=== PATIENT | male | born 1975 | race African-American/Black ===

== ENCOUNTER 2016-12-12 09:38 | Inpatient (IN) | payer OTHER ==
[2016-12-12 10:05] VITALS: BMI 21.5
--- NOTE | 2016-12-12 12:11 | HP ---
CIWA Score - CIWA Score Nausea/Vomitin-No Nausea/No Vomiting Muscle Tremors: 4-Moderate,w/Arms Extend Anxiety: 3 Agitation: 4-Moderately Restless Paroxysmal Sweats: 3 Orientation: 0-Oriented Tacttile Disturbances: 0-None Auditory Disturbances: 0-None Visual Disturbances: 0-None Headache: 0-None Present CIWA-Ar Total Score: 14 Admission ROS BHS - HPI Chief Complaint: I am here for detox. Allergies/Adverse Reactions: Allergies Allergy/AdvReac Type Severity Reaction Status Date / Time No Known Allergies Allergy Verified 12/12/16 11:08 History of Present Illness: pt is a 41yr old male with a history of alcohol dependence seeking detox for treatment. Exam Limitations: No Limitations - Ebola screening Have you traveled outside of the country in the last 21 days: No Have you had contact with anyone from an Ebola affected area: No Have you been sick,other than usual withdrawal symptoms: No Do you have a fever: No - Review of Systems Constitutional: Chills, Diaphoresis, Loss of Appetite, Night Sweats, Changes in sleep EENT: reports: No Symptoms Reported Respiratory: reports: Cough Cardiac: reports: No Symptoms Reported GI: reports: Poor Appetite, Poor Fluid Intake : reports: No Symptoms Reported Musculoskeletal: reports: No Symptoms Reported Integumentary: reports: Flushing, Sweating Neuro: reports: Tingling, Tremors Endocrine: reports: Excessive Sweating, Flushing, Intolerance to Cold, Intolerance to Heat Hematology: reports: No Symptoms Reported Psychiatric: reports: No Sypmtoms Reported, Judgement Intact, Mood/Affect Appropiate, Orientated x3, Agitated, Anxious Other Systems: Reviewed and Negative Patient History - Patient Medical History Hx Anemia: No Hx Asthma: No Hx Chronic Obstructive Pulmonary Disease (COPD): No Hx Cancer: No Hx Cardiac Disorders: No Hx Congestive Heart Failure: No Hx Hypertension: No Hx Hypercholesterolemia: No Hx Pacemaker: No HX Cerebrovascular Accident: No Hx Seizures: No Hx Dementia: No Hx Diabetes: No Hx Gastrointestinal Disorders: No Hx Liver Disease: No Hx Genitourinary Disorders: No Hx Sexually Transmitted Disorders: No Hx Renal Disease (ESRD): No Hx Thyroid Disease: No Hx Human Immunodeficiency Virus (HIV): No (negative) Hx Hepatitis C: No (negative) Hx Depression: Yes Hx Suicide Attempt: No Hx Bipolar Disorder: No Hx Schizophrenia: No - Patient Surgical History Past Surgical History: No - PPD History Previous Implant?: Yes Documented Results: Negative w/o proof PPD to be Administered?: Yes - Reproductive History Patient is a Female of Child Bearing Age (11 -55 yrs old): No - Smoking Cessation Smoking history: Current every day smoker Have you smoked in the past 12 months: Yes Aproximately how many cigarettes per day: 7 Hx Chewing Tobacco Use: No Initiated information on smoking cessation: Yes 'Breaking Loose' booklet given: 12/12/16 - Substance & Tx. History Hx Alcohol Use: Yes Hx Substance Use: No Substance Use Type: Alcohol Hx Substance Use Treatment: No - Substances Abused Alcohol Route: Oral Frequency: Daily Amount used: 2-3 40 oz malt liquor Age of first use: 35 Date of Last Use: 12/10/16 Family Disease History - Family Disease History Family Disease History: Diabetes: Mother (), CA: Mother Admission Physical Exam BHS - Vital Signs Vital Signs: Vital Signs - 24 hr 12/12/16 10:01 Temperature 96.8 F L Pulse Rate 60 Respiratory 18 Rate Blood Pressure 127/80 - Physical General Appearance: Yes: Appropriately Dressed, Thin, Irritable, Sweating, Anxious HEENTM: Yes: Hearing grossly Normal, Normal Voice, Nasal Congestion Respiratory: Yes: Lungs Clear, Normal Breath Sounds, No Respiratory Distress Neck: Yes: No masses,lesions,Nodules Breast: Yes: Within Normal Limits Cardiology: Yes: Regular Rhythm, Regular Rate, S1, S2 Abdominal: Yes: Normal Bowel Sounds, Non Tender, Soft Genitourinary: Yes: Within Normal Limits Back: Yes: Normal Inspection Musculoskeletal: Yes: full range of Motion, Muscle Pain (knee pain) Extremities: Yes: Normal Capillary Refill, Normal Inspection, Tremors Neurological: Yes: Fully Oriented, Alert, Normal Response Integumentary: Yes: Normal Color Lymphatic: Yes: Within Normal Limits - Diagnostic (1) Alcohol dependence with uncomplicated withdrawal Current Visit: Yes Status: Chronic (2) Cocaine dependence Current Visit: Yes Status: Chronic Qualifiers: Substance use status: uncomplicated Qualified Code(s): F14.20 - Cocaine dependence, uncomplicated; F14.20 - Cocaine dependence, uncomplicated; F14.20 - Cocaine dependence, uncomplicated (3) Chronic knee pain Current Visit: Yes Status: Chronic Qualifiers: Laterality: right Qualified Code(s): M25.561 - Pain in right knee; M25.561 - Pain in right knee; G89.29 - Other chronic pain; G89.29 - Other chronic pain Cleared for Admission BHS - Detox or Rehab [facility] Level of Care: Medically Managed Detox Regimen/Protocol: Librium [facility] Breath Alcohol Content Breath Alcohol Content: 0 Urine Drug Screen - Results Drug Screen Negative: Yes
[2016-12-12] MEDS ORDERED: MAGNESIUM CITRATE 300 ML BOTTLE PO PRN (12:12)
[2016-12-12] MEDS ORDERED: ACETAMINOPHEN 325 MG TABLET (FP) PO PRN (12:12)
[2016-12-12] MEDS ORDERED: MENTHOL/PHENOL 1 EACH UD MM PRN (12:12)
[2016-12-12] MEDS ORDERED: IBUPROFEN 400 MG TABLET (FP) PO PRN (12:12)
[2016-12-12] MEDS ORDERED: MAG HYDROX/AL HYDROX/SIMETH 30 ML UNIT-DOSE CUP PO PRN (12:12)
[2016-12-12] MEDS ORDERED: NICOTINE POLACRILEX 2 MG GUM BUC PRN (12:12)
[2016-12-12] MEDS ORDERED: LOPERAMIDE HCL 2 MG CAPSULE PO PRN (12:12)
[2016-12-12] MEDS ORDERED: chlordiazePOXIDE HCL 25 MG CAPSULE PO PRN (12:12)
[2016-12-12] MEDS ORDERED: guaiFENesin/D-METHORPHAN HB 10 ML UNIT-DOSE CUPS PO PRN (12:12)
[2016-12-12] MEDS ORDERED: MAGNESIUM HYDROX 2400MG/30ML ORAL SUSPENSION 30 ML CUP PO PRN (12:12)
[2016-12-12] MEDS ORDERED: P-EPHED 60MG/TRIPROLIDI 2.5MG TABLET PO PRN (12:12)
[2016-12-12] MEDS ORDERED: chlordiazePOXIDE HCL 25 MG CAPSULE PO ONE (12:29)
--- NOTE | 2016-12-12 16:09 | CONSULT ---
[facility] Psychiatric Consult - Data Date of interview: 12/12/16 Admission source: [facility] Identifying data: First admission to [facility] for this 41 y/o AA male seeking detox treatment for alcohol and marihuana dependence.Patient is single,father of one,domiciled,unemployed and deprived of financial assistance. Substance Abuse History: Confirmed by patient. Smoking Cessation. Smoking history: Current every day smoker. Have you smoked in the past 12 months: Yes. Aproximately how many cigarettes per day: 7. Hx Chewing Tobacco Use: No. Initiated information on smoking cessation: Yes. 'Breaking Loose' booklet given : 12/12/16. - Substance & Tx. History. Hx Alcohol Use: Yes. Hx Substance Use : No. Substance Use Type: Alcohol. Hx Substance Use Treatment: No. - Substances Abused. Alcohol. Route: Oral. Frequency: Daily. Amount used: 2 -3 40 oz malt liquor. Age of first use: 35. Date of Last Use: 12/10/16 Medical History: Patient endorses good general health. Psychiatric History: Patient denies. Physical/Sexual Abuse/Trauma History: Patient denies. Additional Comment: Drug Screen is negative. Mental Status Exam - Mental Status Exam Alert and Oriented to: Time, Place, Person Cognitive Function: Good Patient Appearance: Well Groomed Mood: Hopeful, Euthymic Affect: Appropriate, Normal Range Patient Behavior: Appropriate, Cooperative Speech Pattern: Clear Voice Loudness: Normal Thought Process: Intact, Goal Oriented Thought Disorder: Not Present Hallucinations: Denies Suicidal Ideation: Denies Homicidal Ideation: Denies Insight/Judgement: Poor Sleep: Well Appetite: Good Muscle strength/Tone: Normal Gait/Station: Normal Psychiatric Findings - Problem List ([place] 1, 2,3) (1) Alcohol dependence with uncomplicated withdrawal Current Visit: Yes Status: Acute (2) Cocaine dependence Current Visit: Yes Status: Acute Qualifiers: Substance use status: uncomplicated Qualified Code(s): F14.20 - Cocaine dependence, uncomplicated; F14.20 - Cocaine dependence, uncomplicated; F14.20 - Cocaine dependence, uncomplicated (3) Nicotine dependence Current Visit: Yes Status: Acute (4) Chronic knee pain Current Visit: Yes Status: Chronic Qualifiers: Laterality: right Qualified Code(s): M25.561 - Pain in right knee; M25.561 - Pain in right knee; G89.29 - Other chronic pain; G89.29 - Other chronic pain - Initial Treatment Plan Initial Treatment Plan: Psychoeducation.Detoxification.Observation.
[2016-12-12 16:46] LABS: URINE APPEARANCE CLEAR; URINE BILIRUBIN NEGATIVE (NEGATIVE); URINE BLOOD NEGATIVE (NEGATIVE); URINE COLOR LTYELLOW; URINE GLUCOSE (UA) NEGATIVE (NEGATIVE); URINE KETONE TRACE (NEGATIVE); URINE NITRITE NEGATIVE (NEGATIVE); URINE PROTEIN NEGATIVE (NEGATIVE); URINE UROBILINOGEN NEGATIVE mg/dL (0.2-1.0)
[2016-12-12] MEDS: chlordiazePOXIDE HCL 25 MG CAPSULE PO SCH ×2 (17:49→22:26)
[2016-12-12 18:25] LABS: URINE LEUK ESTERASE Negative (NEGATIVE)
[2016-12-12] MEDS: diphenhydrAMINE HCL 50 MG CAPSULE PO PRN (22:26)
[2016-12-12] MEDS: THIAMINE HCL 100 MG TABLET (FP) PO SCH (22:26)
[2016-12-13] MEDS: chlordiazePOXIDE HCL 25 MG CAPSULE PO SCH ×4 (05:46→22:15)
[2016-12-13 10:14] LABS: MCH 27.9 pg (25.7-33.7); MEAN CELL VOLUME 87.1 fl (80-96); MEAN PLT VOLUME 10.9 fl (7.5-11.1); PLATELET COUNT 168 K/MM3 (134-434); RDW 14.4 % (11.9-15.9); WHITE BLOOD COUNT 5.8 K/mm3 (4.0-10.0)
[2016-12-13] MEDS: PRENATAL VITAMINS W/ FOLIC ACID TABLET (FP) PO SCH (10:49)
[2016-12-13] MEDS: NICOTINE 14 MG/24 HOURS TOPICAL PATCH TD SCH (10:49)
[2016-12-13 10:51] LABS: ALK PHOS 77 U/L (45-117); ANION GAP 7 (8-16); BILIRUBIN,TOTAL 0.3 mg/dL (0.2-1.0); CALCIUM 9.1 mg/dL (8.5-10.1); CO2 27 mmol/L (21-32); CREATININE 1.1 mg/dL (0.7-1.3); GLUCOSE,RANDOM 92 mg/dL (74-106); SGPT/ALT 28 U/L (12-78); TOT PROT 7.7 g/dl (6.4-8.2)
--- NOTE | 2016-12-13 11:05 | EKG ---
Test Reason : Blood Pressure : / mmHG Vent. Rate : 047 BPM Atrial Rate : 047 BPM P-R Int : 168 ms QRS Dur : 080 ms QT Int : 450 ms P-R-T Axes : 070 026 046 degrees QTc Int : 398 ms SINUS BRADYCARDIA OTHERWISE NORMAL ECG NO PREVIOUS ECGS AVAILABLE Confirmed by SEAN GERBER MD ([id number]) on 12/13/2016 11:05:38 AM Referred By: Confirmed By:SEAN GERBER MD
[2016-12-13 11:23] LABS: SGOT/AST 29 U/L (15-37)
--- NOTE | 2016-12-13 11:58 | PN ---
S CIWA - CIWA Score Nausea/Vomitin Muscle Tremors: 3 Anxiety: 3 Agitation: 2 Paroxysmal Sweats: 1-Minimal Palms Moist Orientation: 0-Oriented Tacttile Disturbances: 1-Very Mild Itch/Numbness Auditory Disturbances: 1-Very Mild Visual Disturbances: 0-None Headache: 2-Mild CIWA-Ar Total Score: 16 BHS Progress Note (SOAP) Subjective: alert,irritable,anxious,interrupted sleep,tremor Objective: 12/13/16 11:56 Vital Signs Temperature 97.5 F L 12/13/16 10:00 Pulse Rate 51 L 12/13/16 10:00 Respiratory Rate 20 12/13/16 10:00 Blood Pressure 115/78 12/13/16 10:00 O2 Sat by Pulse Oximetry (%) ekg sinus bradycardia 47/min no chest pain,no sob,no dizziness Laboratory Last Values WBC 5.8 K/mm3 (4.0-10.0) 12/13/16 06:00 RBC 4.96 M/mm3 (4.00-5.60) 12/13/16 06:00 Hgb 13.8 GM/dL (11.7-16.9) 12/13/16 06:00 Hct 43.3 % (35.4-49) 12/13/16 06:00 MCV 87.1 fl (80-96) 12/13/16 06:00 MCH 27.9 pg (25.7-33.7) 12/13/16 06:00 MCHC 32.0 g/dl (32.0-35.9) 12/13/16 06:00 RDW 14.4 % (11.9-15.9) 12/13/16 06:00 Plt Count 168 K/MM3 (134-434) 12/13/16 06:00 MPV 10.9 fl (7.5-11.1) 12/13/16 06:00 Sodium 142 mmol/L (136-145) 12/13/16 06:00 Potassium 4.8 mmol/L (3.5-5.1) 12/13/16 06:00 Chloride 108 mmol/L (98-107) H 12/13/16 06:00 Carbon Dioxide 27 mmol/L (21-32) 12/13/16 06:00 Anion Gap 7 (8-16) L 12/13/16 06:00 BUN 15 mg/dL (7-18) 12/13/16 06:00 Creatinine 1.1 mg/dL (0.7-1.3) 12/13/16 06:00 Creat Clearance w eGFR > 60 (>60) 12/13/16 06:00 Random Glucose 92 mg/dL (74-106) 12/13/16 06:00 Calcium 9.1 mg/dL (8.5-10.1) 12/13/16 06:00 Total Bilirubin 0.3 mg/dL (0.2-1.0) 12/13/16 06:00 AST 29 U/L (15-37) 12/13/16 06:00 ALT 28 U/L (12-78) 12/13/16 06:00 Alkaline Phosphatase 77 U/L (45-117) 12/13/16 06:00 Total Protein 7.7 g/dl (6.4-8.2) 12/13/16 06:00 Albumin 4.0 g/dl (3.4-5.0) 12/13/16 06:00 Urine Color Ltyellow 12/12/16 15:30 Urine Appearance Clear 12/12/16 15:30 Urine pH 5.0 (5.0-8.0) 12/12/16 15:30 Ur Specific [place] 1.025 (1.005-1.025) 12/12/16 15:30 Urine Protein Negative (NEGATIVE) 12/12/16 15:30 Urine Glucose (UA) Negative (NEGATIVE) 12/12/16 15:30 Urine Ketones Trace (NEGATIVE) H 12/12/16 15:30 Urine Blood Negative (NEGATIVE) 12/12/16 15:30 Urine Nitrite Negative (NEGATIVE) 12/12/16 15:30 Urine Bilirubin Negative (NEGATIVE) 12/12/16 15:30 Urine Urobilinogen Negative mg/dL (0.2-1.0) 12/12/16 15:30 Ur Leukocyte Esterase Negative (NEGATIVE) 12/12/16 15:30 RPR Titer Nonreactive (NONREACTIVE) 12/13/16 06:00 Assessment: 12/13/16 11:58 withdrawal symptom Plan: continue detox
[2016-12-13] MEDS: diphenhydrAMINE HCL 50 MG CAPSULE PO PRN (22:15)
[2016-12-13] MEDS: THIAMINE HCL 100 MG TABLET (FP) PO SCH (22:15)
[2016-12-14] MEDS: chlordiazePOXIDE HCL 25 MG CAPSULE PO SCH ×2 (05:30→11:06)
[2016-12-14] MEDS: PRENATAL VITAMINS W/ FOLIC ACID TABLET (FP) PO SCH (11:06)
[2016-12-14] MEDS: NICOTINE 14 MG/24 HOURS TOPICAL PATCH TD SCH (11:07)
--- NOTE | 2016-12-14 11:11 | PN ---
S CIWA - CIWA Score Nausea/Vomitin Muscle Tremors: 3 Anxiety: 3 Agitation: 2 Paroxysmal Sweats: 1-Minimal Palms Moist Orientation: 0-Oriented Tacttile Disturbances: 1-Very Mild Itch/Numbness Auditory Disturbances: 1-Very Mild Visual Disturbances: 0-None Headache: 2-Mild CIWA-Ar Total Score: 16 BHS Progress Note (SOAP) Subjective: alert,irritable,interrupted sleep,tremor,anxious Objective: 12/14/16 11:05 Vital Signs Temperature 98.1 F 12/14/16 09:57 Pulse Rate 90 12/14/16 09:57 Respiratory Rate 16 12/14/16 09:57 Blood Pressure 113/80 12/14/16 09:57 O2 Sat by Pulse Oximetry (%) 12/14/16 11:05 Laboratory Last Values WBC 5.8 K/mm3 (4.0-10.0) 12/13/16 06:00 RBC 4.96 M/mm3 (4.00-5.60) 12/13/16 06:00 Hgb 13.8 GM/dL (11.7-16.9) 12/13/16 06:00 Hct 43.3 % (35.4-49) 12/13/16 06:00 MCV 87.1 fl (80-96) 12/13/16 06:00 MCH 27.9 pg (25.7-33.7) 12/13/16 06:00 MCHC 32.0 g/dl (32.0-35.9) 12/13/16 06:00 RDW 14.4 % (11.9-15.9) 12/13/16 06:00 Plt Count 168 K/MM3 (134-434) 12/13/16 06:00 MPV 10.9 fl (7.5-11.1) 12/13/16 06:00 Sodium 142 mmol/L (136-145) 12/13/16 06:00 Potassium 4.8 mmol/L (3.5-5.1) 12/13/16 06:00 Chloride 108 mmol/L (98-107) H 12/13/16 06:00 Carbon Dioxide 27 mmol/L (21-32) 12/13/16 06:00 Anion Gap 7 (8-16) L 12/13/16 06:00 BUN 15 mg/dL (7-18) 12/13/16 06:00 Creatinine 1.1 mg/dL (0.7-1.3) 12/13/16 06:00 Creat Clearance w eGFR > 60 (>60) 12/13/16 06:00 Random Glucose 92 mg/dL (74-106) 12/13/16 06:00 Calcium 9.1 mg/dL (8.5-10.1) 12/13/16 06:00 Total Bilirubin 0.3 mg/dL (0.2-1.0) 12/13/16 06:00 AST 29 U/L (15-37) 12/13/16 06:00 ALT 28 U/L (12-78) 12/13/16 06:00 Alkaline Phosphatase 77 U/L (45-117) 12/13/16 06:00 Total Protein 7.7 g/dl (6.4-8.2) 12/13/16 06:00 Albumin 4.0 g/dl (3.4-5.0) 12/13/16 06:00 Urine Color Ltyellow 12/12/16 15:30 Urine Appearance Clear 12/12/16 15:30 Urine pH 5.0 (5.0-8.0) 12/12/16 15:30 Ur Specific [place] 1.025 (1.005-1.025) 12/12/16 15:30 Urine Protein Negative (NEGATIVE) 12/12/16 15:30 Urine Glucose (UA) Negative (NEGATIVE) 12/12/16 15:30 Urine Ketones Trace (NEGATIVE) H 12/12/16 15:30 Urine Blood Negative (NEGATIVE) 12/12/16 15:30 Urine Nitrite Negative (NEGATIVE) 12/12/16 15:30 Urine Bilirubin Negative (NEGATIVE) 12/12/16 15:30 Urine Urobilinogen Negative mg/dL (0.2-1.0) 12/12/16 15:30 Ur Leukocyte Esterase Negative (NEGATIVE) 12/12/16 15:30 RPR Titer Nonreactive (NONREACTIVE) 12/13/16 06:00 Assessment: 12/14/16 11:11 withdrawal symptom Plan: continue detox
[2016-12-14] MEDS: chlordiazePOXIDE 5 MG CAPSULE PO SCH ×2 (17:37→22:11)
[2016-12-14] MEDS: THIAMINE HCL 100 MG TABLET (FP) PO SCH (22:10)
[2016-12-15] MEDS: chlordiazePOXIDE 5 MG CAPSULE PO SCH ×2 (05:37→11:03)
--- NOTE | 2016-12-15 10:31 | PN ---
S Progress Note (SOAP) Subjective: alert,irritable,interrupted sleep Objective: 12/15/16 10:30 Vital Signs Temperature 98.1 F 12/15/16 09:50 Pulse Rate 72 12/15/16 09:50 Respiratory Rate 18 12/15/16 09:50 Blood Pressure 102/77 12/15/16 09:50 O2 Sat by Pulse Oximetry (%) Assessment: 12/15/16 10:30 withdrawal symptom Plan: continue detox,discharge in am
[2016-12-15] MEDS: PRENATAL VITAMINS W/ FOLIC ACID TABLET (FP) PO SCH (11:03)
[2016-12-15] MEDS: NICOTINE 14 MG/24 HOURS TOPICAL PATCH TD SCH (11:04)
[2016-12-15] MEDS: chlordiazePOXIDE HCL 10 MG CAPSULE PO SCH ×2 (17:18→22:15)
[2016-12-15] MEDS: THIAMINE HCL 100 MG TABLET (FP) PO SCH (22:14)
[2016-12-15] MEDS: diphenhydrAMINE HCL 50 MG CAPSULE PO PRN (22:15)
[2016-12-16] MEDS: chlordiazePOXIDE HCL 10 MG CAPSULE PO SCH ×2 (05:47→11:26)
--- NOTE | 2016-12-16 09:04 | DS ---
[facility] Detox Discharge Summary Admission Date: 12/12/16 Discharge Date: 12/16/16 - History Present History: Alcohol Dependence, Cocaine Dependence Pertinent Past History: above - Physical Exam Results Vital Signs: Vital Signs Temperature 96.9 F L 12/16/16 06:37 Pulse Rate 60 12/16/16 06:37 Respiratory Rate 16 12/16/16 06:37 Blood Pressure 102/60 12/16/16 06:37 O2 Sat by Pulse Oximetry (%) Pertinent Admission Physical Exam Findings: Laboratory Tests 12/12/16 12/13/16 12/13/16 15:30 06:00 06:00 WBC 5.8 RBC 4.96 Hgb 13.8 Hct 43.3 MCV 87.1 MCH 27.9 MCHC 32.0 RDW 14.4 Plt Count 168 MPV 10.9 Sodium 142 Potassium 4.8 Chloride 108 H Carbon Dioxide 27 Anion Gap 7 L BUN 15 Creatinine 1.1 Creat Clearance w eGFR > 60 Random Glucose 92 Calcium 9.1 Total Bilirubin 0.3 AST 29 ALT 28 Alkaline Phosphatase 77 Total Protein 7.7 Albumin 4.0 Urine Color Ltyellow Urine Appearance Clear Urine pH 5.0 Ur Specific [place] 1.025 Urine Protein Negative Urine Glucose (UA) Negative Urine Ketones Trace H Urine Blood Negative Urine Nitrite Negative Urine Bilirubin Negative Urine Urobilinogen Negative Ur Leukocyte Esterase Negative RPR Titer 12/13/16 06:00 WBC RBC Hgb Hct MCV MCH MCHC RDW Plt Count MPV Sodium Potassium Chloride Carbon Dioxide Anion Gap BUN Creatinine Creat Clearance w eGFR Random Glucose Calcium Total Bilirubin AST ALT Alkaline Phosphatase Total Protein Albumin Urine Color Urine Appearance Urine pH Ur Specific [place] Urine Protein Urine Glucose (UA) Urine Ketones Urine Blood Urine Nitrite Urine Bilirubin Urine Urobilinogen Ur Leukocyte Esterase RPR Titer Nonreactive Vital Signs - 24 hr 12/15/16 12/15/16 12/15/16 09:50 14:40 18:24 Temperature 98.1 F 98.3 F 98.4 F Pulse Rate 72 75 75 Respiratory 18 18 18 Rate Blood Pressure 102/77 113/75 117/73 12/15/16 12/16/16 12/16/16 23:50 00:30 03:30 Temperature 98.4 F Pulse Rate 66 Respiratory 18 18 17 Rate Blood Pressure 130/79 12/16/16 06:37 Temperature 96.9 F L Pulse Rate 60 Respiratory 16 Rate Blood Pressure 102/60 medically stable for dc dc today detox completed - Treatment Hospital Course: Detox Protocol Followed, Detoxed Safely, Responded well, Discharged Condition Good, Rehab Referral Accepted - Medication Discharge Medications: Ambulatory Orders NK [No Known Home Medication] 12/12/16
[2016-12-16 11:17] VITALS: BP 128/81; PULSE 77; TEMP 97.6
== END 2016-12-16 10:07 | disposition home or self-care (01) | DRG 774 ==
LOC: YASAS 09:38 → Y6N 11:43
PROVIDERS: ADMIT Internal Medicine; ATTEND Internal Medicine
PROC: HZ2ZZZZ Detoxification Services for Substance Abuse Treatment (ICD-10-PCS; principal; 2016-12-12)
DX: F10.230 Alcohol dependence with withdrawal, uncomplicated (principal); F14.20 Cocaine dependence, uncomplicated; F17.210 Nicotine dependence, cigarettes, uncomplicated; F32.9 Major depressive disorder, single episode, unspecified; M25.561 Pain in right knee; G89.29 Other chronic pain
CPT/HCPCS: 36415; 80053; 81003; 85027; 86593; 93005; 93010